=== PATIENT | female | born 1980 ===

== ENCOUNTER → 2021-10-10 | Outpatient (CLI) | payer BC ==
[2021-10-10 18:10] LABS: CREATININE, serum 0.73 mg/dL (0.57-1.11); POTASSIUM 3.7 mmol/L (3.5-4.5)
== END ==
LOC: ZCOL.LAB 17:49
PROVIDERS: Nurse Practitioner
DX: R06.02 Shortness of breath (principal); R07.89 Other chest pain

== ENCOUNTER → 2021-10-11 | Outpatient (CLI) | payer BC | LOC: COL.RAD 13:55 | DX: J43.9 Emphysema, unspecified (principal); L92.9 Granulomatous disorder of the skin and subcutaneous tissue, unspecified; R79.1 Abnormal coagulation profile | CPT/HCPCS: Q9967 ==

== ENCOUNTER 2024-03-03 15:00 | Inpatient (IN) | payer BC ==
[~2024-03-03] VITALS: Ht 172.7 cm; Wt 156.0 kg
[2024-04-14] VITALS (15 sets, daily range): BP systolic 130–177; BP diastolic 79–96; PULSE 81–102; TEMP 97.6–98.1
[2024-04-14] MEDS ORDERED: LR 1,000 ML IV SCH (05:00)
[2024-04-14] MEDS ORDERED: ZOLOFT 100MG100 MG PO (06:47)
[2024-04-14] MEDS ORDERED: PRINIVIL20 MG PO (06:47)
[2024-04-14] MEDS ORDERED: COREG CR40 MG PO (06:47)
[2024-04-14] MEDS ORDERED: ALDACTONE 100M100 MG PO (06:48)
[2024-04-14] MEDS ORDERED: Vecuronium 10 MG VIAL IV ONE (06:48)
[2024-04-14] MEDS ORDERED: ATARAX 10MG10 MG/TAB PO (06:51)
[2024-04-14] MEDS ORDERED: K-DUR 10 MEQ T10 MEQ PO (06:52)
[2024-04-14] MEDS ORDERED: SUFentanil 50 MCG/1 ML VIAL IV ONE (06:52)
[2024-04-14] MEDS ORDERED: SINGULAIR 110 MG/TAB PO (06:52)
[2024-04-14] MEDS ORDERED: PROTONIX 40MG T40 MG PO (06:53)
[2024-04-14] MEDS ORDERED: VITAMIND3 5000 PO (06:56)
[2024-04-14] MEDS ORDERED: K2-4545 MCG PO (06:56)
[2024-04-14] MEDS ORDERED: diphenhydrAMINE 50 MG/ML 1 ML VIAL ONE (07:32)
[2024-04-14] MEDS ORDERED: dexAMETHasone 10 MG/ML VIAL ONE ×2 (07:32→08:31)
[2024-04-14] MEDS ORDERED: Ondansetron 4 MG/2 ML VIAL ONE (07:32)
[2024-04-14] MEDS ORDERED: Glycopyrrolate 0.2 MG/ML 1 ML VIAL ONE (07:40)
[2024-04-14] MEDS ORDERED: Labetalol 100 MG/20 ML Multi-Dose VIAL ONE (07:57)
[2024-04-14] MEDS ORDERED: hydrALAZINE 20 MG/ML 1 ML VIAL IV PRN (08:30)
[2024-04-14] MEDS ORDERED: Meperidine 50 MG/ML 1 ML VIAL IV PRN (08:30)
[2024-04-14] MEDS ORDERED: HYDROmorphone 1 MG/1 ML SYRINGE [PACU/SDC ONLY] IV PRN (08:30)
[2024-04-14] MEDS ORDERED: Ondansetron 4 MG/2 ML VIAL IV PRN ×3 (08:30→10:15)
[2024-04-14] MEDS ORDERED: Lidocaine 1% w EPI (1:100,000) 20 ML Multi-Dose VIAL ONE (08:31)
[2024-04-14] MEDS ORDERED: LR 1,000 ML IV ONE (09:43)
[2024-04-14] MEDS ORDERED: LR 0 ML IV ONE (09:43)
[2024-04-14] MEDS ORDERED: diphenhydrAMINE 25 MG CAP PO PRN (10:15)
[2024-04-14] MEDS ORDERED: oxyCODONE Oral Soln 5 MG/5 ML UD PO PRN (10:15)
[2024-04-14] MEDS ORDERED: D5 1/2 NS & 20 mEq KCl 1,000 ML IV SCH (10:15)
[2024-04-14] MEDS ORDERED: diphenhydrAMINE 50 MG/ML 1 ML VIAL IV PRN (10:15)
[2024-04-14] MEDS ORDERED: Promethazine 25 MG Rectal SUPP RC PRN (10:15)
[2024-04-14] MEDS ORDERED: Naloxone 0.4 MG/ML VIAL IV PRN ×2 (10:15)
[2024-04-14] MEDS ORDERED: D5W 1,000 ML IV SCH (10:15)
[2024-04-14] MEDS ORDERED: HYDROmorphone PCA 0.2 MG/ML 30 ML VIAL IV SCH (10:15)
[2024-04-14] MEDS ORDERED: Acetaminophen Oral Susp 325 MG/10.15 ML UD PO SCH (11:03)
--- NOTE | 2024-04-14 12:07 | NUR ---
PT TO ROOM 330 PER BED WITH REPORT FROM KRISHNA LEGAL ACTIVITY ADJUDICATOR @1150. PT IS A/O X4, LUNGS CTA, IV TO RAC. ABDOMINAL INCISION X5 WITH JAIME DRAIN TO LEFT OF MIDLINE, VSS. PT RESTING QUIETLY.
--- NOTE | 2024-04-14 13:21 | NUR ---
PT RESTING QUIETLY. VSS.
[2024-04-14] MEDS ORDERED: Sennosides/Docusate 8.6-50 MG TAB PO SCH (21:00)
--- NOTE | 2024-04-14 22:32 | NUR ---
patient lying in bed, alert and oriented x4. denies chest pain and shortness of breath. IV in RAC is patent, site CDI with D5 1/2 NS running at 125 ml/hr and STRUCTURAL ENGINEERING DRAFTING OFFICER pump. JAIME drain in place in LUQ, x5 lap sites, all CDI. ERAS in place, pt aware of NPO status. robbins catheter draining clear yellow urine. fall precautions in place, call light within reach. pt has no further needs, questions or concerns at this time.
[2024-04-15] VITALS (14 sets, daily range): BP systolic 125–167; BP diastolic 77–98; PULSE 75–92; TEMP 97.6–98.3
[2024-04-15 06:34] LABS: BASO % 0.1 % (0.0-2.0); GRAN # 9.4 K/mm3 (1.4-6.5); GRAN % 85.1 % (42.2-75.2); HEMOGLOBIN 11.6 g/dl (12.5-16.0); LYMPH # 1.1 K/mm3 (1.2-3.4); LYMPH % 10.3 % (20.0-51.0); MEAN CELL VOLUME 80 fl (80.0-100.0); MEAN CORPUSCULAR HEMOGLOBIN 26 pg (27-31); MEAN CORPUSCULAR HGB CONC 32 g/dl (33.0-37.0); MEAN PLATELET VOLUME 10.8 fl (7.4-10.4); MONO # 0.4 K/mm3 (0.1-0.6); PLATELET COUNT 191 K/mm3 (130-400); RED BLOOD COUNT 4.49 M/mm3 (4.10-5.30); REDCELL DISTRIBUTION WIDTH-CV 14.7 % (11.5-14.5)
[2024-04-15 06:44] LABS: HEMATOCRIT 35.9 % (37.0-47.0)
[2024-04-15 06:51] LABS: ALBUMIN 3.1 g/dL (3.5-5.0); BILIRUBIN,TOTAL 0.5 mg/dL (0.2-1.2); CALCIUM 9.1 mg/dL (8.4-10.2); CREATININE, serum 0.75 mg/dL (0.57-1.11); POTASSIUM 4.3 mEq/L (3.5-4.5)
[2024-04-15] MEDS ORDERED: Pantoprazole 40 MG in NS 10 ML IV SCH (09:00)
--- NOTE | 2024-04-15 09:27 | NUR ---
forestry conservation worker met with pt to discuss intake information. She reports to live with her partner, Satnos [phone] and her children in [place]. She reports to sees a provider at [facility] for PCP needs and obtains medications from [facility] with some difficulties. She manages well and states it is just the total cost of the medications that is just overwhelming. She confirms to have [employer] insurance. She is independent with ADLS and uses no DME. She did not have a DPOA-HC, but created one listing Santos, then her sister. DUANE and Naz Hampton witnessed signature. Copies/original provided and copy in the chart. She has no further needs. Discharge Plan: home
--- NOTE | 2024-04-15 10:53 | NUR ---
PATIENT ALERT AND ORIENTED X4. VSS. PATIENT HERE FOR SEUN EN Y. LAPS X5 CDI WITH SKIN GLUE. IV TO RIGHT AC WITH FLUIDS RUNNING AT 125ML/HOUR. ENERGY PROJECT MANAGER RUNNING. PATIENT C/O GAS PAIN. PATIENT AMBULATED TO CHAIR. NO FURTHER NEEDS. CALL LIGHT IN REACH.
--- NOTE | 2024-04-15 11:43 | NUR ---
D: Knitted Cloth Examiner stopped by room on rounds. A: Pt was resting and content. Pt has no needs right now. P: Knitted Cloth Examiner informed pt that if she needed anything from the money examiner area to let her nurse know. Knitted Cloth Examiner will follow up as needed.
[2024-04-15] MEDS ORDERED: Spironolactone 25 MG TAB PO SCH (12:33)
[2024-04-15] MEDS ORDERED: Lisinopril 20 MG TAB PO SCH (12:33)
[2024-04-15] MEDS ORDERED: Carvedilol 25 MG TAB PO SCH (12:33)
[2024-04-15] MEDS ORDERED: Sertraline 100 MG TAB PO SCH (12:34)
[2024-04-15] MEDS ORDERED: Cholecalciferol (Vit D3) 5000 Units Capsule PO SCH (12:35)
[2024-04-15] MEDS ORDERED: traMADol 50 MG TAB PO PRN (12:45)
[2024-04-15] MEDS ORDERED: Acetaminophen 500 MG TAB PO SCH (12:45)
[2024-04-15] MEDS ORDERED: hydrOXYzine HCl 10 MG TAB PO SCH (13:00)
[2024-04-15] MEDS ORDERED: Montelukast 10 MG TAB PO SCH (21:00)
--- NOTE | 2024-04-15 23:15 | NUR ---
patient lying in bed, alert and oriented x4. denies chest pain and shortness of breath. reports pain rated a 2/10 during rest and 4/10 during movement. pt ambulated with steady gait through hallway. 2315- Dr. Lizarraga notified of pt request for tablet pain med instead of oral solution, new orders placed. left JAIME drain site and lap sites x5 CDI. SCDs in place. IV in RAC patent with fluids running at 125 ml/hr. call light within reach. patient has no further needs, questions or concerns at this time.
[2024-04-15] MEDS ORDERED: oxyCODONE 5 MG TAB PO PRN (23:30)
[2024-04-16 03:50] VITALS: BP 128/77; PULSE 72; TEMP 98.4
[2024-04-16 03:57] VITALS: BP_SYST 128
[2024-04-16 07:08] VITALS: BP 120/80; PULSE 82; TEMP 98.3
[2024-04-16] MEDS ORDERED: TYLENOL 500MG500 MG PO (07:37)
[2024-04-16] MEDS ORDERED: ROXICODONE 55 MG/TAB PO (07:38)
[2024-04-16 09:00] VITALS: BP_SYST 120
--- NOTE | 2024-04-16 09:23 | NUR ---
PT RESTING IN BED. TOLERATING FULL LIQUIDS. AM MEDS GIVEN ORDERED. PT DENIES PAIN, OR NEEDS.
[2024-04-16 12:00] VITALS: BP 114/75; PULSE 68; TEMP 98.1
[2024-04-16 13:16] VITALS: BP_SYST 114
--- NOTE | 2024-04-16 14:20 | NUR ---
DISCHARGE INSTRUCTIONS REVIEWED WITH PATIENT. QUESTIONS SOLICITED AND ANSWERED. PT LEFT UNIT PER WHEEL CHAIR WITH STAFF. DISCHARGE CRITERIA MET.
== END 2024-04-16 14:00 | disposition home or self-care (01) | DRG 621 ==
LOC: INPTSU 04-14 05:33 → SURG 04-14 05:33
PROVIDERS: ADMIT Surgery
PROC: 8E0W4CZ Robotic Assisted Procedure of Trunk Region, Percutaneous Endoscopic Approach (ICD-10-PCS; 2024-04-14)
PROC: 0D164ZA Bypass Stomach to Jejunum, Percutaneous Endoscopic Approach (ICD-10-PCS; principal; 2024-04-14 07:30)
DX: E66.01 Morbid (severe) obesity due to excess calories (principal); K21.9 Gastro-esophageal reflux disease without esophagitis; E28.2 Polycystic ovarian syndrome; I10 Essential (primary) hypertension; Z68.43 Body mass index [BMI] 50.0-59.9, adult; Z88.5 Allergy status to narcotic agent; Z88.8 Allergy status to other drugs, medicaments and biological substances; Z88.6 Allergy status to analgesic agent; Z91.040 Latex allergy status; Z79.899 Other long term (current) drug therapy; Z87.891 Personal history of nicotine dependence
CPT/HCPCS: A4314; J0780; J1100; J1170; J1200; J1650; J1920; J1956; J2405; J2470; J2704; J2795; J3480; J7120